=== PATIENT | male | born 1965 | race Caucasian/White ===

== ENCOUNTER 2017-06-27 14:50 | Emergency (ER) | payer OTHER ==
[2017-06-27 14:59] VITALS: BMI 26.4
[2017-06-27 15:21] LABS: BASOPHILS % (AUTO) 0.2 % (0.2-1.0); EOSINOPHILS % (AUTO) 0.1 % (0.9-2.9); HEMATOCRIT 54.3 % (42.0-54.0); LYMPHOCYTES # (AUTO) 1.4 X10^3/uL (1.3-2.9); LYMPHOCYTES % (AUTO) 9.6 % (21.0-51.0); MEAN CORPUSCULAR HEMOGLOBIN 29.6 pg (27.0-34.0); MEAN CORPUSCULAR VOLUME 84.6 fL (80.0-100.0); MEAN PLATELET VOLUME 8.2 fL (7.4-11.0); MONOCYTES # (AUTO) 0.4 x10^3/uL (0.3-0.8); MONOCYTES % (AUTO) 2.9 % (0.0-13.0); NEUTROPHILS # (AUTO) 12.7 x10^3/uL (2.2-4.8); NEUTROPHILS % (AUTO) 87.2 % (42.0-75.0); PLATELET COUNT 215 X10^3/uL (150.0-450.0); RED BLOOD COUNT 6.42 X10^6/uL (4.7-6.0); RED CELL DISTRIBUTION WIDTH 13.5 % (11.6-16.5); WHITE BLOOD COUNT 14.5 X10^3/uL (3.6-10.0)
[2017-06-27 15:31] LABS: ALANINE AMINOTRANSFERASE 27 Units/L (12-78); ALBUMIN 4.3 g/dL (3.4-5.0); ALKALINE PHOSPHATASE 114 Units/L (46-116); ASPARTATE AMINO TRANSFERASE 17 Units/L (15-37); BLOOD UREA NITROGEN 9 mg/dL (7-18); CALCIUM 9.1 mg/dL (8.5-10.1); CARBON DIOXIDE 25.9 mmol/L (21-32); CHLORIDE 104 mmol/L (98-107); COR NA(FOR HYPERGLY) 142 mmol/L (136-145); CREATININE 1.06 mg/dL (0.70-1.30); SODIUM 141 mmol/L (136-145); TOTAL PROTEIN 8.9 g/dL (6.4-8.2); eGFR BLACK RACES > 60 (>60); eGFR NON BLACK RACES > 60 (>60)
--- NOTE | 2017-06-27 15:33 | DR.GENAD ---
HPI - PCP Primary Care Physician: LANDEN - Complaint/Symptoms Chief Complaint:: PATIENT STATED THAT HE WOKE UP AROUND 4 AM THIS MORNING WITH SEVERE ABD. CRAMPS AND NOW IS PASSING BLOOD FROM HIS RECTAL AND HAVING PAIN THAT IS RADIATING INTO HIS GROIN. PATIENT STATE THAT THIS HAS NEVER HAPPENED BEFORE. - Source History Provided: Patient - Mode of Arrival Mode of Arrival: Ambulatory - Timing Onset of Chief Complaint: 06/27/17 PMH - PMH Past Medical History: Yes Past Medical History: Hypertension, Hypothyroidism Past Surgical History: Yes Surgical History: Ortho Surgery - Family History History of Family Medical Conditions: No - Social History Does patient currently use any type of tobacco product: No Have you used tobacco products in the last 12 months: No Type of Tobacco Use: None Does any household member use tobacco: No Alcohol Use: None Do you use any recreational Drugs:: No Lives With: Family Lives Where: Home - infectious screening In the last 2 months have you had wt loss of >10#?: NO Have you had fever, night sweats or hemotysis?: No Have you traveled outside the country in the last 6 months?: No Isolation: Standard ROS - Review of Systems Eyes: No Symptoms Reported ENTM: No Symptoms Reported Respiratoy: No Symptoms Reported Cardiovascular: No Symptoms Reported Gastrointestinal/Abdominal: No Symptoms Reported Genitourinary: No Symptoms Reported Neurological: No Symptoms Reported Musculoskeletal: No Symptoms Reported Integumentary: No Symptoms Reported Hematologic/Lymphatic: No Symptoms Reported Endocrine: No Symptoms Reported Psychiatric: No Symptoms Reported All Other Systems: Reviewed and Negative PE - Vital Signs Vitals: Temperature 98.2 F Pulse Rate 86 Respiratory Rate 20 Blood Pressure 219/118 O2 Sat by Pulse Oximetry 98 - General Limitations: No Limitations General Appearance: Alert, In No Apparent Distress - Head Head Exam: Normal Inspection, Atraumatic - Eyes Eye exam: Normal Appearance, PERRL, EOMI - ENT ENT Exam: Normal Exam External Ear Exam: Normal External Inspection TM/Canal Exam: Bilateral Normal Nose Exam: Normal Nose Exam Mouth Exam: Normal Inspection Throat Exam: Normal Inspection - Neck Neck Exam: Normal Inspection - Chest Chest Inspection: Normal Inspection - Respiratory Respiratory Exam: Normal Lung Sounds Bilat Respiratory Exam: Bilateral Clear to Auscultation - Cardiovascular Cardiovascular Exam: Regular Rate, Normal Rhythm - Abdominal Exam Abdominal Exam: Normal Inspection, Normal Bowel Sounds Abdominal Tenderness: negative: RUQ, RLQ, LUQ, LLQ, Epigastrium, Suprapubic, Diffuse, Mild, Moderate, Severe, Other - Extremities Extremities Exam: Normal Inspection, Full ROM - Back Back Exam: Normal Inspection, Full ROM - Neurologic Neurological Exam: Alert, Oriented X3, CN II-XII Intact - Psychiatric Psychiatric Exam: Normal Affect, Normal Mood - Skin Skin Exam: Warm, Dry, Intact ROR - Labs Reviewed Result Diagrams: 06/27/17 15:10 06/27/17 15:10 Laboratory: WBC 14.5 X10^3/uL (3.6-10.0) H 06/27/17 15:10 RBC 6.42 X10^6/uL (4.7-6.0) H 06/27/17 15:10 Hgb 19.0 g/dL (13.5-18.0) H 06/27/17 15:10 Hct 54.3 % (42.0-54.0) H 06/27/17 15:10 MCV 84.6 fL (80.0-100.0) 06/27/17 15:10 MCH 29.6 pg (27.0-34.0) 06/27/17 15:10 MCHC 35.0 g/dL (33.0-35.0) 06/27/17 15:10 RDW 13.5 % (11.6-16.5) 06/27/17 15:10 Plt Count 215 X10^3/uL (150.0-450.0) 06/27/17 15:10 MPV 8.2 fL (7.4-11.0) 06/27/17 15:10 Neut % (Auto) 87.2 % (42.0-75.0) H 06/27/17 15:10 Lymph % (Auto) 9.6 % (21.0-51.0) L 06/27/17 15:10 Cole % (Auto) 2.9 % (0.0-13.0) 06/27/17 15:10 Eos % (Auto) 0.1 % (0.9-2.9) L 06/27/17 15:10 Baso % (Auto) 0.2 % (0.2-1.0) 06/27/17 15:10 Neut # (Auto) 12.7 x10^3/uL (2.2-4.8) H 06/27/17 15:10 Lymph # (Auto) 1.4 X10^3/uL (1.3-2.9) 06/27/17 15:10 Cole # (Auto) 0.4 x10^3/uL (0.3-0.8) 06/27/17 15:10 Eos # (Auto) 0.0 x10^3/uL (0.0-0.2) 06/27/17 15:10 Baso # (Auto) 0.0 X10^3/uL (0.0-0.1) 06/27/17 15:10 Absolute Nucleated RBC 0.0 /100WBC 06/27/17 15:10 Sodium 141 mmol/L (136-145) 06/27/17 15:10 Corrected Sodium 142 mmol/L (136-145) 06/27/17 15:10 Potassium 4.3 mmol/L (3.5-5.1) 06/27/17 15:10 Chloride 104 mmol/L (98-107) 06/27/17 15:10 Carbon Dioxide 25.9 mmol/L (21-32) 06/27/17 15:10 BUN 9 mg/dL (7-18) 06/27/17 15:10 Creatinine 1.06 mg/dL (0.70-1.30) 06/27/17 15:10 Est GFR (MDRD) Af Amer > 60 (>60) 06/27/17 15:10 Est GFR (MDRD) Non-Af > 60 (>60) 06/27/17 15:10 Glucose 122 mg/dL (65-99) H 06/27/17 15:10 Calcium 9.1 mg/dL (8.5-10.1) 06/27/17 15:10 Corrected Calcium TNP 06/27/17 15:10 Total Bilirubin 0.60 mg/dL (0.2-1.0) 06/27/17 15:10 AST 17 Units/L (15-37) 06/27/17 15:10 ALT 27 Units/L (12-78) 06/27/17 15:10 Alkaline Phosphatase 114 Units/L (46-116) 06/27/17 15:10 C-Reactive Protein 10.00 mg/L (0-3.0) H 06/27/17 15:10 Total Protein 8.9 g/dL (6.4-8.2) H 06/27/17 15:10 Albumin 4.3 g/dL (3.4-5.0) 06/27/17 15:10 Globulin 4.6 g/dL (2.5-4.5) H 06/27/17 15:10 Albumin/Globulin Ratio 0.9 Ratio (1.1-2.1) L 06/27/17 15:10 Amylase 74 Units/L (25-115) 06/27/17 15:10 Lipase 149 Units/L (73-393) 06/27/17 15:10 H. pylori IgG Antibody Negative (NEGATIVE) 06/27/17 15:10 - XRAY XRAY Interpreted by: Radiologist (CT Abd/Pel: There is mucosal enhancement of the desending and sigmoid colon with suggestion of boowel wall edema however this is not well evaluated due to nondistentin of the bowel. Correlate clinically for colitis or other colonic inflammation, Incidental note of left adrenal mass with central area of macroscopic fat suggestive of an adrenal myelolioma. The presence of other cell components could be further evaluated with nonemergent contrast enhanced abdominal MRI) - Diagnosis Discharge Problem: Rectal bleed - Discharge Plan Condition: Stable - Follow ups/Referrals Follow ups/Referrals: [facility],None [Primary Care Provider] - 3 days - Instructions
[2017-06-27] MEDS ORDERED: MORPHINE SULFATE INJ 4 MG IVP ONE (15:43)
[2017-06-27] MEDS ORDERED: MORPHINE SULFATE INJ 4 MG ONE (15:47)
--- NOTE | 2017-06-27 16:41 | RAD ---
Exam: Acute abdominal series History: 52-year-old male with abdominal pain and rectal bleeding this morning Comparison: None Findings: Upright chest as well as supine and upright views of the abdomen were obtained. On the upright view of the chest, no acute cardiopulmonary abnormality is seen. Supine and erect views the abdomen demonstrate a nonspecific bowel gas pattern with no sign of obstru ction or intra-abdominal free air. Moderate degree of fecal material is present in the right side of the colon. Impression: No acute abnormality is seen in the chest or abdomen Reported By:
[2017-06-27] MEDS ORDERED: NS 100 ML IV 100 ML IV ONE (16:47)
--- NOTE | 2017-06-27 17:57 | CT ---
HISTORY: Abdominal pain, melena, cramps Study: CT abdomen and pelvis with contrast Comparison: None Technique: Multiple axial images of the abdomen and pelvis were obtained with IV contrast. Oral contrast was no t administered. Dose reduction techniques including Automated Exposure Control (AEC) and adjustment o f mA and kV were utilized. Findings: The visualized portions of the lung bases are clear. The spleen, pancreas and liver are unremarkable . The gallbladder is normal. There is a simple appearing right renal cyst. No renal calculi or obstru ctive uropathy identified. There is a left adrenal mass measuring 2.5 cm with central area of macrosc opic fat suggestive of an adrenal myelolipoma. The presence of other cell components could be further evaluated with nonemergent MRI if clinically indicated No free intraperitoneal air. No evidence of bowel obstruction. The appendix is normal. There is mucos al enhancement of the descending and sigmoid colon suggestion of bowel wall edema however is not well evaluated due to decompression of the bowel segments. No free fluid or abscess is identified. The soft tissues and osseous structures are unremarkable. The vascular structures are within normal l imits for age. No pathologically enlarged lymph nodes are identified. Bilateral seminal vesicles appe ar prominent. The urinary bladder is not well distended. IMPRESSION: 1. There is mucosal enhancement of the descending and sigmoid colon with suggestion of bowel wall isis ma however this is not well evaluated due to nondistention of the bowel. Correlate clinically for col itis or other colonic inflammation. 2. Incidental note of left adrenal mass with central area of macroscopic fat suggestive of an adrenal myelolipoma. The presence of other cell components could be further evaluated with nonemergent contr ast-enhanced abdominal MRI. Reported By:
[2017-06-27] MEDS ORDERED: DEMEROL INJ IVP ONE (18:22)
[2017-06-27] MEDS ORDERED: BENADRYL INJ 50 MG VIAL IVP ONE (18:23)
[2017-06-27] MEDS ORDERED: PHENERGAN INJ 25 MG ONE (18:23)
[2017-06-27] MEDS ORDERED: DEMEROL INJ ONE (18:24)
[2017-06-27] MEDS ORDERED: BENADRYL INJ 50 MG VIAL ONE (18:29)
[2017-06-27 19:41] VITALS: BP 188/94
== END 2017-06-27 19:43 | disposition home or self-care (01) ==
LOC: ER 15:07
DX: K62.5 Hemorrhage of anus and rectum (principal)
CPT/HCPCS: 36415; 74022; 74177; 80053; 82150; 83690; 85025; 86140; 86677; 96365; 96374; 96375; 99282; 99283; A4222; J1200; J2175; J2270; J2550